=== PATIENT | male | born 1975 | race Caucasian/White ===

== ENCOUNTER 2016-02-24 10:05 | Emergency (ER) | payer MEDICAID ==
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
[2016-02-24 10:11] VITALS: TEMP 98.1
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
[2016-02-24 11:21] VITALS: BP 119/81; PULSE 79; RESP 18; O2SAT 96
== END 2016-02-24 11:21 | disposition home or self-care (01) ==
LOC: EDUNIT#
DX: S16.1XXA Strain of muscle, fascia and tendon at neck level, initial encounter (principal); F17.200 Nicotine dependence, unspecified, uncomplicated; V49.49XA Driver injured in collision with other motor vehicles in traffic accident, initial encounter; Y92.410 Unspecified street and highway as the place of occurrence of the external cause; Y93.89 Activity, other specified

== ENCOUNTER → 2016-02-27 | Outpatient (CLI) | payer OTHER, MEDICAID ==
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
== END ==
LOC: FIMAGING 12:31
PROVIDERS: ATTEND Family Medicine
DX: M54.5 Low back pain (principal); S39.92XS Unspecified injury of lower back, sequela; V49.9XXS Car occupant (driver) (passenger) injured in unspecified traffic accident, sequela

== ENCOUNTER 2016-08-13 01:42 | Emergency (ER) | payer MEDICAID, OTHER ==
[2016-08-13 01:48] VITALS: BP 132/77; PULSE 79; RESP 16; TEMP 97.7; O2SAT 97
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
[2016-08-13] MEDS ORDERED: TDAP ADULT 0.5 ML INJ (BOOSTRIX) IM ONE (03:36)
== END 2016-08-13 03:58 | disposition home or self-care (01) ==
PROC: 0HQ1XZZ Repair Face Skin, External Approach (ICD-10-PCS; principal; 2016-08-13)
DX: S01.81XA Laceration without foreign body of other part of head, initial encounter (principal); F17.200 Nicotine dependence, unspecified, uncomplicated; Z23 Encounter for immunization; W22.8XXA Striking against or struck by other objects, initial encounter; Y92.69 Other specified industrial and construction area as the place of occurrence of the external cause; Y99.0 Civilian activity done for income or pay; Y93.89 Activity, other specified